=== PATIENT | female | born 1955 | race Caucasian/White ===

== ENCOUNTER → 2020-01-15 09:38 | Outpatient (CLI) | payer BC, SELFPAY ==
--- NOTE | 2020-01-19 10:18 | PM.PFT.1 ---
Pulmonary Function Test Referral & Results Date Patient Seen: 01/15/20 Requesting provider: Linda Brownlee Results: The spirometry demonstrates an FVC of 2.28 L which is 77% of predicted. The FEV1 was measured at 1.86 L which is 82% of predicted. The FEV1/FVC ratio was 82 which is 105% of predicted. Following the administration of bronchodilator there was a 23% improvement in FEV1 and a 74% improvement in FEF 25-75%. Lung volumes show an SVC of 2.87 L which is 102% of predicted. The diffusing capacity was measured at 19.37 which is 89% of predicted. The maximum voluntary ventilation was slightly reduced Interpretation: This study demonstrates moderate obstructive lung disease with evidence of significant benefit following bronchodilator administration particularly small airway flow as indicated by the 74% increase in FEF 25-75%. There was however a 23% improvement in FEV1 as well.
== END ==
PROVIDERS: PCP Family Medicine; Referring Provider Family Medicine
DX: R06.02 Shortness of breath (principal)
CPT/HCPCS: 94060; 94726; 94729